=== PATIENT | male | born 1970 | race Caucasian/White ===

== ENCOUNTER 2024-12-09 11:29 | Day surgery (SDC) | payer OTHER ==
--- NOTE | 2024-12-08 13:53 | RAD REPORT ---
EXAMINATION: TWO VIEW CHEST XR CLINICAL INDICATION: preprocedure TECHNIQUE: 2 views of the chest was performed. COMPARISON: 08/17/2023 FINDINGS: The lungs are well inflated and clear. The heart is normal in size. No displaced fractures evident. C ervical spine hardware plate. IMPRESSION: No acute or significant abnormalities.
[2024-12-08 14:25] LABS: Absolute Eosinophils 0.2 K/uL (0-0.5); Absolute Monocytes 0.3 K/uL (0.1-1.3); Absolute Neutrophil 4.2 K/uL (1.8-8.0); Basophils % 0.7 % (0-1.3); Eosinophils % 2.9 % (0-4.4); Hematocrit 37.5 % (39.6-49.0); Hemoglobin 12.8 g/dL (13.6-17.9); Lymphocytes % 29.5 % (15.3-44.8); MCH 25.3 pg (27.0-35.0); MCHC 34.1 g/dL (32.0-36.0); MCV 74.2 fL (80-100); MPV 7.5 fL (7.6-11.3); Monocytes % 4.2 % (3.3-12.3); Neutrophils % 62.7 % (41.7-73.7); Nucleated Red Blood Cells % 0.1 % (0-0); Platelets 326 thou/uL (152-406); RBC Red Blood Cell Count 5.05 M/uL (4.33-5.43); Red Cell Distribution Width 14.5 % (12.1-15.2)
[2024-12-08 14:36] LABS: PT Prothrombin Time 11.3 SECONDS (10-13.0); PTT, Activated Partial Thromb 31.1 SECONDS (27.2-37.4); Protime INR 0.99
[2024-12-08 14:44] LABS: Anion Gap 7.8 mEq/L (5.0-15.0); Potassium 3.8 mEq/L (3.5-5.1)
[~2024-12-09 11:29] MED LIST: NA CHLORIDE 0.9% 500 ML ONE
[2024-12-09] MEDS ORDERED: VERAPAMIL HCL 10 MG/4 ML VIAL IV ONE (13:18)
[2024-12-09] MEDS ORDERED: HEPA 1000U/500MLS 1,000 UNIT/500 ML BAG IV ONE (13:18)
[2024-12-09] MEDS ORDERED: NITROGLYCERIN/D5W 50 MG/250 ML BTL IV ONE (13:18)
[2024-12-09] MEDS ORDERED: HEPARIN 10,000 UNIT/10 ML VIAL IV ONE (13:18)
[2024-12-09] MEDS ORDERED: HEPARIN 5000 UNIT/ML 1 ML VIAL ONE (13:19)
[2024-12-09] MEDS ORDERED: LIDOCAINE 1% 20 ML MDV ONE (13:23)
[2024-12-09] MEDS ORDERED: FENTANYL CITR 100 MCG/2 ML ONE (13:27)
[2024-12-09] MEDS ORDERED: MIDAZOLAM HCL 2 MG/2 ML INJ ONE (13:27)
[2024-12-09 14:24] VITALS: TEMP 97.1
--- NOTE | 2024-12-09 14:38 | OP ---
Date of Procedure: 12/09/2024 Surgeon: ADRIANA ROMERO Procedures Performed: 1. Selective coronary angiogram. 2. Left heart catheterization. Indication: Chest pain with abnormal stress test and high coronary calcium score. Access: Right radial artery 6-Hungarian closed with TR band. Complications: None. Bleeding: Less than 50 mL. Anesthesia: Total sedation time was 45 minutes. Used fentanyl and Versed. Description Of Procedure: After risks, benefits, and alternatives were explained, the patient agreed to procedure and signed informed consent. The patient was brought into cardiac catheterization [facility], prepped and draped in usual sterile fashion. Then, I accessed right radial artery using pedi atric micropuncture kit, placed 6-Hungarian slender sheath and took 5-Hungarian [place] 4.0 catheter into the aortic root over a J-wire, engaged the left main, took standard views, and then in the RCA, took sta ndard views and then catheter was pushed over the wire into the LV, measured the LVEDP. Pullback did not record any gradient. Then I removed the catheter and the sheath, placed TR band with good hemos tasis. Findings: 1. Left main; very large and normal. 2. LAD; large vessel. At the mid segment after diagonal 2 takeoff, there is 30% stenosis and diagona l 1 has proximal 30% stenosis. Rest of the LAD and diagonal branches are normal. 3. Left circumflex; it is moderate size and normal. Normal OM branches. 4. RCA; large and dominant with proximal 20% stenosis. The rest of the RCA including PDA and PLB are normal. 5. LVEDP is between 10 and 13 mmHg. Conclusion: 1. Mild coronary artery disease. 2. Borderline LVEDP. Recommendation: Medical management. SR/MODL Voice ID: [id number] Report ID: [id number]
[2024-12-09 16:27] VITALS: O2SAT 100
[2024-12-09 16:36] VITALS: BP 121/71
== END 2024-12-09 16:40 | disposition home or self-care (01) ==
LOC: PRE 11:29 → CCL 16:40
PROVIDERS: ATTEND Internal Medicine
DX: I25.10 Atherosclerotic heart disease of native coronary artery without angina pectoris (principal); I10 Essential (primary) hypertension; E78.5 Hyperlipidemia, unspecified; F17.220 Nicotine dependence, chewing tobacco, uncomplicated; Z79.82 Long term (current) use of aspirin; Z79.899 Other long term (current) drug therapy; Z82.49 Family history of ischemic heart disease and other diseases of the circulatory system
CPT/HCPCS: 36415; 71046; 76937; 80048; 85025; 85610; 85730; 93458; 99152; 99153; C1893; J1644; J2003; J2250; J3010; J7040; Q9966